=== PATIENT | male | born 1955 | race Caucasian/White ===

== ENCOUNTER 2016-07-25 06:42 | Day surgery (SDC) | payer BC, OTHER ==
[2016-07-25] VITALS (7 sets, daily range): BP systolic 100–118; BP diastolic 68–82; PULSE 59–87; RESP 16–20; TEMP 98.2; O2SAT 97–100
[~2016-07-25] VITALS: Ht 167.6 cm; Wt 65.0 kg
[~2016-07-25 06:42] MED LIST: ALPR.25 PO; AMIO200 PO; DILTCD180 PO; [UNRECOGNIZED DRUG - CODE] PO
[2016-07-25] MEDS ORDERED: ALPR.5 PO (07:12)
[2016-07-25] MEDS ORDERED: DILT180C56 PO (07:12)
[2016-07-25] MEDS ORDERED: DILT120T PO (07:12)
[2016-07-25] MEDS ORDERED: METO25TA3 PO (07:12)
[2016-07-25] MEDS ORDERED: CLAR10CA3 PO (07:12)
[2016-07-25] MEDS ORDERED: ASPI1TAB69 PO (07:12)
[2016-07-25] MEDS ORDERED: AMIO200T PO (07:12)
[2016-07-25] MEDS ORDERED: LEVOFLOXACIN 500 MG PREMIX 100 ML - nephrostomy tube insertion or exchange IV SCH (07:30)
[2016-07-25] MEDS ORDERED: SODIUM CHLORIDE 0.9% 1000 ML IV SCH (07:30)
[2016-07-25] MEDS ORDERED: MIDAZOLAM HCL 5 MG/5 ML VIAL ONE (08:21)
[2016-07-25] MEDS ORDERED: fentaNYL CITRATE 250 MCG/5 ML AMP ONE (08:22)
[2016-07-25] MEDS ORDERED: MIDAZOLAM HCL 2 MG/2 ML VIAL ONE (09:12)
--- NOTE | 2016-07-25 09:40 | PD.RAD ---
Post Procedure Progress Note Pre Procedure Diagnosis: (1) Bladder cancer metastasized to pelvic region Post Procedure Diagnosis: (1) Bladder cancer metastasized to pelvic region Procedure Date: Jul 25, 2016 Supervising Radiologist: Sathish Leahy JR Proceduralist/Assist: Cl Anders, RT(R), Elizabeth Bailey RT(R)(CV) Anesthesia: Conscious Sedation Plan of Activity Patient to Unit: ROPU Patient Condition: Good See PACS Report for procedural detail/treatment Drainage Procedure Procedure 1 Imaging Guidance: Fluoroscopy Side: Bilateral Procedure Type: Nephrostomy, Ureteral Stent Procedure: Exchange Fluid Description: Bloody Findings: Occluded distal left ureter. Unable to get across. New nephrostomy tube placed. Mild hematuria afterwards. Right side has nephroureteral stent. Bladder is extremely small. Spoke to Dr Crooks. Would not do well with ureteral stent due to bladder. Will need to keep nephroureteral. New one placed. Mild hematuria. Plan Can cap the right tube if able to tolerate. If develops fever or right flank pain then will need to place back to a bag. The left tube will need to remain to drainage. Jr. Armond,Sathish Douglas MD Jul 25, 2016 09:40
[2016-07-25] MEDS ORDERED: IOHEXOL 350 MG/ML 50 ML BTL (for RAD DIAG) OTHER ONE (10:32)
--- NOTE | 2016-07-25 13:07 | RADRPT ---
EXAM DATE/TIME: 07/25/2016 08:28 [facility] COMPARISON: No previous studies available for comparison. INDICATIONS : Patient presents with bladder cancer in need of nephrostomy tube exchange. Patient has left-sided ne phrostomy tube last exchanged approximately 3 months ago at an outlying institution. Patient presents for routine exchange. MEDICAL HISTORY : Bladder cancer HTN Urinary distention Hx bladder tumor BPH Bilat renal hydronephrosis SURGICAL HISTORY : Hx of removal of bladder tumor Hernia repair TURP Cystoscopy ENCOUNTER: Subsequent ACUITY: 3 months PAIN SCORE: 0/10 LOCATION: N/A FLUORO TIME: 13.-9 minutes IMAGE SERIES: 5 SEDATION TIME: 60 minutes CONTRAST: 35 cc Omnipaque (iohexol) 350 MEDICATION(S): 1.) 7 mg midazolam (Versed) IV 2.) 350 mcg fentanyl (Sublimaze) IV DEVICE(S): 1.) 8 [place] 25CM Flexima catheter PROCEDURE : 1. Antegrade pyelogram. 2. Nephrostomy tube exchange. 3. Conscious sedation with continuous EKG and oximetry monitoring. The risks, benefits and alternatives to the procedure were explained and verbal and written consent w as obtained. The site was prepped in sterile fashion. Full sterile technique was used, including ca p, mask, sterile gloves and gown and a large sterile sheet. Hand hygiene and 2% chlorhexidine and/or betadine/alcohol prep was utilized per protocol for cutaneous antisepsis. With fluoroscopic guidanc e antegrade pyelogram was performed. These images show appropriate position of the nephrostomy tube within the collecting system of the le ft kidney. Exchange for a 6 [place] sheath and Berenstein catheter was performed. Multiple attempts we re made at gaining access across the occluded ureterovesical junction. These were unsuccessful. Over a guidewire the prescribed nephrostomy tube was placed. Injection of positive contrast demonstra daniel good position of the catheter within the collecting system. Conscious sedation was performed with the prescribed dosages and duration as above in the presence of an independent trained radiology nurse to assist in the monitoring of the patient. EKG and oximetry remained stable throughout the procedure. The patient tolerated the procedure well and there were n o complications. The patient was sent to post anesthesia recovery in stable condition. CONCLUSION: Uncomplicated nephrostomy tube exchange as above. Failed attempts at gaining access across the occlud ed UVJ. Sathish Leahy Jr., MD on July 25, 2016 at 12:53 Board Certified Radiologist. This report was verified electronically.
--- NOTE | 2016-07-25 13:31 | RADRPT ---
EXAM DATE/TIME: 07/25/2016 08:28 [facility] COMPARISON: No previous studies available for comparison. INDICATIONS : Patient presents with bladder cancer in need of nephrostomy tube exchange patient has a right nephro ureteral catheter [facility] Routine exchange. MEDICAL HISTORY : Bladder cancer HTN Urinary distention Hx bladder tumor BPH Bilat renal hydronephrosis SURGICAL HISTORY : Hx of removal of bladder tumor Hernia repair TURP Cystoscopy ENCOUNTER: Subsequent ACUITY: 3 months PAIN SCORE: 0/10 LOCATION: N/A FLUORO TIME: 13.9 minutes IMAGE SERIES: 5 SEDATION TIME: 60 minutes CONTRAST: 35 cc Omnipaque (iohexol) 350 MEDICATION(S): 1.) 7 mg midazolam (Versed) IV 2.) 350 mcg fentanyl (Sublimaze) IV DEVICE(S): 1.) 8 [place]ese 24CM Flexima catheter PROCEDURE : 1. Percutaneous antegrade pyelogram 2. Exchange of nephroureteral stent 3. Conscious sedation with continuous EKG and oximetry monitoring The risks, benefits and alternatives to the procedure were explained and verbal and written consent w as obtained. The site was prepped in sterile fashion. Full sterile technique was used, including ca p, mask, sterile gloves and gown and a large sterile sheet. Hand hygiene and 2% chlorhexidine and/or betadine/alcohol prep was utilized per protocol for cutaneous antisepsis. The skin and subcutaneous tissues were infiltrated with local anesthetic solution. Percutaneous antegrade pyelogram was performed to delineate the urinary tract. The patient has an exi sting nephroureteral catheter. The urinary bladder is extremely small in caliber. I discussed this wi th Dr. Crooks. We both have considerable concern for the ability to exchange the ureteral stent via a cystoscopic approach. Continued nephroureteral catheter is felt most prudent. Existing nephrouretera l catheter was exchanged without difficulty. Mild hematuria noted following this. Follow-up pyelogram demonstrates good position. Conscious sedation was performed with the prescribed dosages and duration as above in the presence of an independent trained radiology nurse to assist in the monitoring of the patient. EKG and oximetry remained stable throughout the procedure. The patient tolerated the procedure well and there were no complications. CONCLUSION: Exchange of a nephroureteral catheter as detailed above. This patient has an extremely small caliber urinary bladder due to prior therapy and there is concern for the ability to exchange a ureteral sten t via a cystoscopic approach. After discussion with Dr. Crooks it was felt that a nephroureteral cath eter be maintained. Sathish Leahy Jr., MD on July 25, 2016 at 13:06 Board Certified Radiologist. This report was verified electronically.
== END 2016-07-25 12:15 | disposition home or self-care (01) ==
LOC: HROP 06:42 → HRIP 06:44 → HROP 12:15
DX: C67.9 Malignant neoplasm of bladder, unspecified (principal); I10 Essential (primary) hypertension; N40.0 Benign prostatic hyperplasia without lower urinary tract symptoms; N13.30 Unspecified hydronephrosis; Z88.1 Allergy status to other antibiotic agents; Z88.8 Allergy status to other drugs, medicaments and biological substances
CPT/HCPCS: 50387; 50431; 50435; 99152; 99153; C1729; C1769; C1877; C1887; J1956; J2250; J3010; J7030; Q9967

== ENCOUNTER 2016-10-01 10:50 | Inpatient (IN) | payer BC, OTHER ==
[~2016-10-01] VITALS: Ht 167.6 cm; Wt 72.2 kg
[2016-10-01 06:09] VITALS: PULSE 83
[~2016-10-01 10:50] MED LIST changes: -ALPR.25 PO; +ALPR.5 PO; -AMIO200 PO; +AMIO200T PO; +ASPI1TAB69 PO; +CLAR10CA3 PO; +DILT120T PO; +DILT180C56 PO; -DILTCD180 PO; +METO25TA3 PO; -[UNRECOGNIZED DRUG - CODE] PO
[2016-10-01 10:52] VITALS: BP 89/54; PULSE 76; RESP 20; TEMP 98.5; O2SAT 97
--- NOTE | 2016-10-01 11:35 | PD ---
HPI Chief Complaint: [employer] Problem Time Seen by Provider: 11:12 Travel History International Travel<30 days: No Contact w/Intl Traveler<30days: No Traveled to known affect area: No History of Present Illness HPI 60yo M with PMH of bladder cancer with local mets (finished 10 days of radiation at [facility] 2 days ago) presents to the ED with c/o no output from his left nephrostomy tube. States that the left tube is further out than normal. Pt had fever 2 days ago. +Nausea for 3 days. Denies any chest pain, sob, abdominal pain, focal weakness or numbness. Pt had bilateral nephrostomy tube replaced [address] Leahy in IR as outpatient. Pt follows with oncologist Dr. Cunningham and urologist Dr. Crooks. PFSH Past Medical History Hx Anticoagulant Therapy: Yes (ASA 81MG) Anxiety: Yes Depression: No Cancer: Yes (bladder cancer) Cardiovascular Problems: Yes (AFIB) Diabetes: No Diminished Hearing: Yes Endocrine: No Genitourinary: Yes Hepatitis: No Hiatal Hernia: No Immune Disorder: No Musculoskeletal: No Neurologic: No Psychiatric: No Reproductive: No Respiratory: No Thyroid Disease: No Past Surgical History Abdominal Surgery: Yes AICD: No Cardiac Surgery: No Ear Surgery: No Endocrine Surgery: No Eye Surgery: No Genitourinary Surgery: Yes (biopsy of bladder and prostate(,) diverticulectomy,) Gynecologic Surgery: No Joint Replacement: No Oral Surgery: No Pacemaker: No Thoracic Surgery: No Social History Alcohol Use: No Tobacco Use: No Substance Use: No Allergies-Medications (Allergen,Severity, Reaction): Coded Allergies: Cipro (Verified Allergy, Intermediate, 10/01/16) pt states "it doesnt agree with me" Lactose (Verified Allergy, Unknown, 10/01/16) Reported Meds & Prescriptions Reported Meds & Active Scripts Active Reported Claritin (Loratadine) 10 Mg Cap 10 Mg PO DAILY Xanax (Alprazolam) 0.5 Mg Tab 0.5 Mg PO Q8H PRN Aspirin 81 Mg Tabdr 81 Mg PO DAILY Metoprolol Tartrate 25 Mg Tab 25 Mg PO BID Diltiazem (Diltiazem HCl) 120 Mg Tab 120 Mg PO HS Diltiazem CD 24 HR 180 Mg Caper 180 Mg PO DAILY Amiodarone (Amiodarone HCl) 200 Mg Tab 200 Mg PO DAILY Review of Systems Except as stated in HPI: all other systems reviewed are Neg Physical Exam Narrative GENERAL: 60yo M not in distress. SKIN: Focused skin assessment warm/dry. HEAD: Atraumatic. Normocephalic. EYES: Pupils equal and round. No scleral icterus. No injection or drainage. ENT: No nasal bleeding or discharge. Mucous membranes pink and moist. NECK: Trachea midline. No JVD. CARDIOVASCULAR: Regular rate and rhythm. No murmur appreciated. RESPIRATORY: No accessory muscle use. Clear to auscultation. Breath sounds equal bilaterally. GASTROINTESTINAL: Abdomen soft, non-tender, nondistended. BACK: Bilateral nephrostomy tubes, left is pulled out more and not draining. Right is draining clear yellow urine. MUSCULOSKELETAL: No obvious deformities. No clubbing. No cyanosis. No edema. NEUROLOGICAL: Awake and alert. No obvious cranial nerve deficits. Motor grossly within normal limits. Normal speech. PSYCHIATRIC: Appropriate mood and affect; insight and judgment normal. Data Data Last Documented VS Vital Signs Date Time Temp Pulse Resp B/P Pulse Ox O2 Delivery O2 Flow Rate FiO2 10/01/16 13:30 103/59 10/01/16 10:52 98.5 76 20 97 Room Air Orders Complete Blood Count With Diff (10/01/16 11:27) Basic Metabolic Panel (Bmp) (10/01/16 11:27) Ct Abd/Pel W/O Iv Contrast (10/01/16 ) Urinalysis - C+S If Indicated (10/01/16 11:27) Sodium Chlor 0.9% 1000 Ml Inj (Ns 1000 M (10/01/16 11:45) Urine Culture (10/01/16 12:20) Invasive Rad Dept Consult (10/01/16 ) Ceftriaxone Inj (Rocephin Inj) (10/01/16 13:30) Sodium Chlor 0.9% 1000 Ml Inj (Ns 1000 M (10/01/16 13:30) Admit Order (Ed Use Only) (10/01/16 13:36) Labs Laboratory Tests Test 10/01/16 10/01/16 12:00 12:20 White Blood Count 10.9 TH/MM3 Red Blood Count 3.66 MIL/MM3 Hemoglobin 9.3 GM/DL Hematocrit 28.0 % Mean Corpuscular Volume 76.5 FL Mean Corpuscular Hemoglobin 25.4 PG Mean Corpuscular Hemoglobin 33.2 % Concent Red Cell Distribution Width 18.9 % Platelet Count 259 TH/MM3 Mean Platelet Volume 8.3 FL Neutrophils (%) (Auto) 82.1 % Lymphocytes (%) (Auto) 2.9 % Monocytes (%) (Auto) 14.3 % Eosinophils (%) (Auto) 0.2 % Basophils (%) (Auto) 0.5 % Neutrophils # (Auto) 8.9 TH/MM3 Lymphocytes # (Auto) 0.3 TH/MM3 Monocytes # (Auto) 1.5 TH/MM3 Eosinophils # (Auto) 0.0 TH/MM3 Basophils # (Auto) 0.1 TH/MM3 CBC Comment DIFF FINAL Differential Comment Sodium Level 133 MEQ/L Potassium Level 3.9 MEQ/L Chloride Level 101 MEQ/L Carbon Dioxide Level 21.4 MEQ/L Anion Gap 11 MEQ/L Blood Urea Nitrogen 61 MG/DL Creatinine 4.61 MG/DL Estimat Glomerular Filtration 13 ML/MIN Rate Random Glucose 98 MG/DL Calcium Level 8.7 MG/DL Urine Color YELLOW Urine Turbidity HAZY Urine pH 5.5 Urine Specific [place] 1.013 Urine Protein 100 mg/dL Urine Glucose (UA) NEG mg/dL Urine Ketones NEG mg/dL Urine Occult Blood LARGE Urine Nitrite NEG Urine Bilirubin NEG Urine Urobilinogen LESS THAN 2.0 MG/DL Urine Leukocyte Esterase LARGE Urine RBC 83 /hpf Urine WBC 66 /hpf Urine Squamous Epithelial <1 /hpf Cells Urine Amorphous Sediment RARE Urine Bacteria RARE /hpf Urine Mucus FEW /lpf Microscopic Urinalysis Comment CULTURE INDICATED MDM Medical Decision Making Medical Screen Exam Complete: Yes Emergency Medical Condition: Yes Interpretation(s) Laboratory Tests Test 10/01/16 10/01/16 12:00 12:20 White Blood Count 10.9 TH/MM3 (4.0-11.0) Red Blood Count 3.66 MIL/MM3 (4.50-5.90) Hemoglobin 9.3 GM/DL (13.0-17.0) Hematocrit 28.0 % (39.0-51.0) Mean Corpuscular Volume 76.5 FL (80.0-100.0) Mean Corpuscular Hemoglobin 25.4 PG (27.0-34.0) Mean Corpuscular Hemoglobin 33.2 % Concent (32.0-36.0) Red Cell Distribution Width 18.9 % (11.6-17.2) Platelet Count 259 TH/MM3 (150-450) Mean Platelet Volume 8.3 FL (7.0-11.0) Neutrophils (%) (Auto) 82.1 % (16.0-70.0) Lymphocytes (%) (Auto) 2.9 % (9.0-44.0) Monocytes (%) (Auto) 14.3 % (0.0-8.0) Eosinophils (%) (Auto) 0.2 % (0.0-4.0) Basophils (%) (Auto) 0.5 % (0.0-2.0) Neutrophils # (Auto) 8.9 TH/MM3 (1.8-7.7) Lymphocytes # (Auto) 0.3 TH/MM3 (1.0-4.8) Monocytes # (Auto) 1.5 TH/MM3 (0-0.9) Eosinophils # (Auto) 0.0 TH/MM3 (0-0.4) Basophils # (Auto) 0.1 TH/MM3 (0-0.2) CBC Comment DIFF FINAL Differential Comment Sodium Level 133 MEQ/L (136-145) Potassium Level 3.9 MEQ/L (3.5-5.1) Chloride Level 101 MEQ/L (98-107) Carbon Dioxide Level 21.4 MEQ/L (21.0-32.0) Anion Gap 11 MEQ/L (5-15) Blood Urea Nitrogen 61 MG/DL (7-18) Creatinine 4.61 MG/DL (0.60-1.30) Estimat Glomerular Filtration 13 ML/MIN (>89) Rate Random Glucose 98 MG/DL (74-106) Calcium Level 8.7 MG/DL (8.5-10.1) Urine Color YELLOW (YELLW/STRAW) Urine Turbidity HAZY (CLEAR) Urine pH 5.5 (5.0-8.5) Urine Specific [place] 1.013 (1.002-1.035) Urine Protein 100 mg/dL (NEG-TRACE) Urine Glucose (UA) NEG mg/dL (NEG) Urine Ketones NEG mg/dL (NEG) Urine Occult Blood LARGE (NEG) Urine Nitrite NEG (NEG) Urine Bilirubin NEG (NEG) Urine Urobilinogen LESS THAN 2.0 MG/DL (LESS THAN 2.0) Urine Leukocyte Esterase LARGE (NEG) Urine RBC 83 /hpf (0-3) Urine WBC 66 /hpf (0-5) Urine Squamous Epithelial <1 /hpf (0-5) Cells Urine Amorphous Sediment RARE Urine Bacteria RARE /hpf (NONE) Urine Mucus FEW /lpf (OCC) Microscopic Urinalysis Comment CULTURE INDICATED Last Impressions Abdomen/Pelvis CT 10/01/16 0000 Signed Impressions: Service Date/Time: Saturday, October 01, 2016 12:05 - CONCLUSION: 1. Bilateral hydronephrosis and hydroureter identified. 2. The bladder is incompletely evaluated on this study without contrast, but abnormal in appearance with surgical clips and abnormal soft tissue masslike area in the left hemipelvis. 3. Diverticulosis without diverticulitis. 4. Left para-aortic adenopathy measuring up to 1.7 cm in short axis dimension at the level of the kidney. Austen Golden MD Differential Diagnosis Incomplete dislodgment of left nephrostomy tube vs. ADAM vs. hydronephrosis Narrative Course 60yo M with bladder CA here with c/o no output from left nephrostomy tube for 36 hours. Labs reviewed, no leukocytosis. H/H is 9.3/28.0. Pt has lab work from 08/30/16 with H/H of 10.9/33.3. Denies any blood or black stool. BUN/ creatinine elevated at 61/4.61 which is increased from 34/2.0 on 08/30/16. UA showed positive leukocyte, WBC 66. Pt given NS IVF x2 and ceftriaxone 1gm IV. CTa/p showed bilateral hydronephrosis and hydroureter. Discussed with Dr. Bower who is urologist covering Dr. Crooks and he recommends placing a consult for IR to have nephrostomy tubes changed. Agrees with admission. Discussed with hospitalist Dr. Daigle who accepted the patient to his service for acute renal failure secondary to bilateral obstructive uropathy and urine infection. Critical Care Narrative Aggregate critical care time was 40 minutes. Time to perform other separately billable procedures was not included in the critical care time. My time did not include minutes spent treating any other patients simultaneously or on activities that did not directly contribute to the patient's treatment. The services I provided to this patient were to treat and/or prevent clinically significant deterioration that could result in: cardiovascular collapse or . I provided critical care services requiring my management, as noted below: Chart data review, documentation time, medication orders and management, vital sign assessments/reviewing monitor data, ordering and reviewing lab tests, ordering and interpreting/reviewing x-rays and diagnostic studies, care of the patient and discussion of the patient with the admitting physicians. Diagnosis Primary Impression: Acute bilateral obstructive uropathy Additional Impression: Acute renal failure Qualified Code: N17.9 - Acute renal failure, unspecified acute renal failure type Admitting Information Admitting Physician Requests: Freya Bean DO October 01, 2016 11:35
[2016-10-01] MEDS ORDERED: SODIUM CHLOR 0.9% 1000 ML INJ 1,000 ML IV ONE ×2 (11:45→13:30)
[2016-10-01 12:21] LABS: AUTOMATED NEUTROPHIL # 8.9 TH/MM3 (1.8-7.7); BASOPHIL # 0.1 TH/MM3 (0-0.2); BASOPHIL % 0.5 % (0.0-2.0); EOSINOPHIL % 0.2 % (0.0-4.0); HEMO FLAGS DIFF FINAL; LYMPH % 2.9 % (9.0-44.0); LYMPHOCYTE # 0.3 TH/MM3 (1.0-4.8); MEAN CELL VOLUME 76.5 FL (80.0-100.0); MEAN CORPUSCULAR HEMOGLOBIN 25.4 PG (27.0-34.0); MEAN CORPUSCULAR HGB CONC 33.2 % (32.0-36.0); MONO % 14.3 % (0.0-8.0); NEUT % 82.1 % (16.0-70.0); PLATELET COUNT 259 TH/MM3 (150-450); RED BLOOD COUNT 3.66 MIL/MM3 (4.50-5.90); RED CELL DISTRIBUTION WIDTH 18.9 % (11.6-17.2); WHITE BLOOD COUNT 10.9 TH/MM3 (4.0-11.0)
--- NOTE | 2016-10-01 12:23 | RADRPT ---
EXAM DATE/TIME: 10/01/2016 12:05 [facility] COMPARISON: No previous studies available for comparison. INDICATIONS : Left flank pain. ORAL CONTRAST: No oral contrast ingested. RADIATION DOSE: 6.65 CTDIvol (mGy) MEDICAL HISTORY : Carcinoma, bladder. SURGICAL HISTORY : nephrostomy tube. ENCOUNTER: Initial ACUITY: 1 day PAIN SCALE: 3/10 LOCATION: Bilateral flank TECHNIQUE: Volumetric scanning of the abdomen and pelvis was performed. Using automated exposure control and ad justment of the mA and/or kV according to patient size, radiation dose was kept as low as reasonably achievable to obtain optimal diagnostic quality images. FINDINGS: There are bilateral percutaneous nephrostomy tubes identified with moderate bilateral hydronephrosis right greater than left. There is hydroureter present. A right nephroureteral stent is noted with dis nasim coil in the bladder. There are surgical clips and abnormal soft tissue in the left hemipelvis jose martin ntified suspect for a masslike area measuring 3.7 x 3.6 cm in transverse and AP dimension. This abuts the left lateral aspect of the bladder. There is diverticulosis of the sigmoid and descending colons . There is no evidence of bowel obstruction. Lung bases are clear. Osseous structures are intact. CONCLUSION: 1. Bilateral hydronephrosis and hydroureter identified. 2. The bladder is incompletely evaluated on this study without contrast, but abnormal in appearance w ith surgical clips and abnormal soft tissue masslike area in the left hemipelvis. 3. Diverticulosis without diverticulitis. 4. Left para-aortic adenopathy measuring up to 1.7 cm in short axis dimension at the level of the kid scottie. Austen Golden MD on October 01, 2016 at 12:18 Board Certified Radiologist. This report was verified electronically.
[2016-10-01 12:56] LABS: BACTERIA, URINE RARE /hpf; BLOOD, URINE LARGE (NEG); GLUCOSE,URINE NEG (NEG); KETONE, URINE NEG (NEG); MUCUS URINE FEW /lpf (OCC); NITRITE,URINE NEG (NEG); PH, URINE 5.5 (5.0-8.5); SQUAMOUS EPITHELIAL CELL URINE <1 /hpf (0-5); URINE COLOR YELLOW (YELLW/STRAW)
[2016-10-01 12:57] LABS: COMMENT (UR) CULTURE INDICATED; CULTURE IF INDICATED CULTURE INDICATED
[2016-10-01 13:03] LABS: BICARBONATE 21.4 MEQ/L (21.0-32.0); POTASSIUM 3.9 MEQ/L (3.5-5.1)
[2016-10-01 13:30] VITALS: BP 103/59
[2016-10-01] MEDS ORDERED: cefTRIAXone INJ 1,000 MG in SODIUM CHLORIDE 0.9% INJ 100 ML IV ONE (13:30)
--- NOTE | 2016-10-01 14:20 | HHI.HP ---
[facility] Service [facility] Primary Care Physician Yong Cunningham MD Admission Diagnosis ADAM, obstructive uropathy Diagnoses: (1) Acute bilateral obstructive uropathy Diagnosis: Principal (2) Bladder cancer metastasized to pelvic region Diagnosis: Principal (3) Acute kidney injury Diagnosis: Principal Chief Complaint: ' there's no output from my left nephrostomy tube'. Travel History International Travel<30 Days: No Contact w/Intl Traveler <30 Da: No Traveled to Known Affected Are: No History of Present Illness patient is a 60 y/o male with history of bladder cancer- s/p bilateral nephrostomy tube placement- s/p recent radiation presented to ER stating that there's no urine output from the left nephrostomy tube. he says that he had some fever at home a couple of days ago. he was just came back home from [facility] after his last radiation on Sunday. he's being followed up by and .he says that the last time that his nephrostomy was changed was three months ago and the next scheduled nephrostomy tube exchange is in October. Review of Systems Constitutional: COMPLAINS OF: Fever, DENIES: Weight loss, Chills, Night Sweats Eyes: DENIES: Blurred vision, Diplopia, Vision loss, Double Vision Ears, nose, mouth, throat: DENIES: Tinnitus, Vertigo, Throat pain, Epistaxis Respiratory: DENIES: Apneas, Cough, Snoring, Wheezing, Hemoptysis, Sputum production, Shortness of breath Cardiovascular: DENIES: Chest pain, Palpitations, Syncope, Dyspnea on Exertion , PND, Lower Extremity Edema, Orthopnea, Claudication Gastrointestinal: DENIES: Abdominal pain, Black stools, Bloody stools, Constipation, Diarrhea, Nausea, Vomiting, Difficulty Swallowing, Anorexia Genitourinary: DENIES: Urinary frequency, Urgency, Hematuria, Dysuria Musculoskeletal: DENIES: Joint pain, Muscle aches, Stiffness, Joint Swelling Integumentary: DENIES: Rash Neurologic: DENIES: Abnormal gait, Headache, Localized weakness, Paresthesias, Seizures, Speech Problems, Tremor, Poor Balance Psychiatric: DENIES: Anxiety, Confusion, Mood changes, Depression, Hallucinations, Agitation, Suicidal Ideation, Homicidal Ideation, Delusions Past Family Social History Past Medical History bladder cancer atrial fibrillation Past Surgical History nephrostomy tube placement Reported Medications Claritin (Loratadine) 10 Mg Cap 10 Mg PO DAILY Xanax (Alprazolam) 0.5 Mg Tab 0.5 Mg PO Q8H PRN Aspirin 81 Mg Tabdr 81 Mg PO DAILY Metoprolol Tartrate 25 Mg Tab 25 Mg PO BID Diltiazem (Diltiazem HCl) 120 Mg Tab 120 Mg PO HS Diltiazem CD 24 HR 180 Mg Caper 180 Mg PO DAILY Amiodarone (Amiodarone HCl) 200 Mg Tab 200 Mg PO DAILY Allergies: Coded Allergies: Cipro (Verified Allergy, Intermediate, 10/01/16) pt states "it doesnt agree with me" Lactose (Verified Allergy, Unknown, 10/01/16) Active Ordered Medications Current Medications Sodium Chloride 1,000 ml @ 999 mls/hr BOLUS ONCE IV Last administered on 10/01 12:14; Start 10/01/16 at 11:45; Stop 10/01/16 at 12:45; Status DC Ceftriaxone Sodium 1000 mg/ Sodium Chloride 100 ml @ 200 mls/hr ONCE ONCE IV Last administered on 10/01/16 13:37; Start 10/01/16 at 13:30; Stop 10/01/16 at 13:59 Sodium Chloride (NS 1000 ml Inj) 1,000 ml @ 999 mls/hr BOLUS ONCE IV Last administered on 10/01/16 13:36; Start 10/01/16 at 13:30; Stop 10/01/16 at 14:30 Family History not relevant to this presentation. Social History no smoking or drinking. Physical Exam Vital Signs Vital Signs Date Time Temp Pulse Resp B/P Pulse Ox O2 Delivery O2 Flow Rate FiO2 10/01/16 10:52 98.5 76 20 89/54 97 Room Air Physical Exam GENERAL: This is a well-nourished, well-developed patient, in no apparent distress. SKIN: No rashes, ecchymoses or lesions. Cool and dry. HEAD: Atraumatic. Normocephalic. No temporal or scalp tenderness. EYES: Pupils equal round and reactive. Extraocular motions intact. No scleral icterus. No injection or drainage. ENT: Nose without bleeding, purulent drainage or septal hematoma. Throat without erythema, tonsillar hypertrophy or exudate. Uvula midline. Airway patent. NECK: Trachea midline. No JVD or lymphadenopathy. Supple, nontender, no meningeal signs. CARDIOVASCULAR: Regular rate and rhythm without murmurs, gallops, or rubs. RESPIRATORY: Clear to auscultation. Breath sounds equal bilaterally. No wheezes , rales, or rhonchi. GASTROINTESTINAL: Abdomen soft, non-tender, nondistended. No hepato-splenomegaly , or palpable masses. No guarding. MUSCULOSKELETAL: Extremities without clubbing, cyanosis, or edema. No joint tenderness, effusion, or edema noted. No calf tenderness. Negative Homans sign bilaterally. NEUROLOGICAL: Awake and alert. Cranial nerves II through XII intact. Motor and sensory grossly within normal limits. Five out of 5 muscle strength in all muscle groups. Normal speech. Laboratory Laboratory Tests Test 10/01/16 10/01/16 12:00 12:20 White Blood Count 10.9 Red Blood Count 3.66 Hemoglobin 9.3 Hematocrit 28.0 Mean Corpuscular Volume 76.5 Mean Corpuscular Hemoglobin 25.4 Mean Corpuscular Hemoglobin 33.2 Concent Red Cell Distribution Width 18.9 Platelet Count 259 Mean Platelet Volume 8.3 Neutrophils (%) (Auto) 82.1 Lymphocytes (%) (Auto) 2.9 Monocytes (%) (Auto) 14.3 Eosinophils (%) (Auto) 0.2 Basophils (%) (Auto) 0.5 Neutrophils # (Auto) 8.9 Lymphocytes # (Auto) 0.3 Monocytes # (Auto) 1.5 Eosinophils # (Auto) 0.0 Basophils # (Auto) 0.1 CBC Comment DIFF FINAL Differential Comment Sodium Level 133 Potassium Level 3.9 Chloride Level 101 Carbon Dioxide Level 21.4 Anion Gap 11 Blood Urea Nitrogen 61 Creatinine 4.61 Estimat Glomerular Filtration 13 Rate Random Glucose 98 Calcium Level 8.7 Urine Color YELLOW Urine Turbidity HAZY Urine pH 5.5 Urine Specific [place] 1.013 Urine Protein 100 Urine Glucose (UA) NEG Urine Ketones NEG Urine Occult Blood LARGE Urine Nitrite NEG Urine Bilirubin NEG Urine Urobilinogen LESS THAN 2.0 Urine Leukocyte Esterase LARGE Urine RBC 83 Urine WBC 66 Urine Squamous Epithelial <1 Cells Urine Amorphous Sediment RARE Urine Bacteria RARE Urine Mucus FEW Microscopic Urinalysis Comment CULTURE INDICATED Date/Time Procedure Status Source Growth 10/01/16 12:20 Urine Culture Received Urine Clean Catch Pending Result Diagram: 10/01/16 1200 10/01/16 1200 Imaging Last Impressions Abdomen/Pelvis CT 10/01/16 0000 Signed Impressions: Service Date/Time: Saturday, October 01, 2016 12:05 - CONCLUSION: 1. Bilateral hydronephrosis and hydroureter identified. 2. The bladder is incompletely evaluated on this study without contrast, but abnormal in appearance with surgical clips and abnormal soft tissue masslike area in the left hemipelvis. 3. Diverticulosis without diverticulitis. 4. Left para-aortic adenopathy measuring up to 1.7 cm in short axis dimension at the level of the kidney. Austen Golden MD Assessment and Plan Assessment and Plan A/P - bladder cancer - s/p nephrostomy tube placement- now with bilateral hydronephrosis/ hydroureter IR consulted for nephrostomy tube exchange- will consult urology continue with IV antibiotic for now-pending the UC -acute kidney injury superimposed on chronic renal insufficiency- due to obstructive uropathy continue with IV fluid- monitor urine output and renal function -transient hypotension; improved after IV fluid -atrial fibrillation; resume metoprolol with hold parameters in light of low blood pressure at the time of presentation- hold cardizem for now -anemia- likely due to chronic disease- will monitor -DVT prophylaxis with SCD's Discussed Condition With ER physician , the patient and RN. Physician Certification 2 Midnight Certification Type: Admission for Inpatient Services Order for Inpatient Services The services are ordered in accordance with Medicare regulations or non- Medicare payer requirements, as applicable. In the case of services not specified as inpatient-only, they are appropriately provided as inpatient services in accordance with the 2-midnight benchmark. Estimated LOS (days): 2 days is the estimated time the patient will need to remain in the hospital, assuming treatment plan goals are met and no additional complications. Post-Hospital Plan: Home Lane Daigle MD October 01, 2016 14:20
[2016-10-01] MEDS: SODIUM CHLOR 0.9% 1000 ML INJ 1,000 ML IV SCH ×2 (14:30→20:30)
[2016-10-01 16:04] VITALS: BP 105/55; PULSE 72; RESP 18; O2SAT 98
[2016-10-01 18:40] VITALS: BP 106/73; PULSE 87; RESP 20; TEMP 98.9; O2SAT 96
[2016-10-01] MEDS ORDERED: ONDANSETRON HCL 4 MG/2 ML VIAL IV PUSH PRN (18:45)
[2016-10-01] MEDS ORDERED: DILTIAZEM-CD 120 MG CAP ER PO SCH (21:00)
[2016-10-01 21:20] VITALS: BP 107/57; PULSE 92; RESP 22; TEMP 99.4; O2SAT 95
[2016-10-01] MEDS: METOPROLOL TARTRATE 25 MG TAB PO SCH (21:23)
[2016-10-01] MEDS: ALPRAZolam 0.5 MG TAB PO PRN (23:07)
[2016-10-02 00:53] VITALS: BP 92/58; PULSE 79; RESP 20; TEMP 99.3; O2SAT 94
[2016-10-02 05:02] VITALS: BP 100/59; PULSE 94; RESP 20; TEMP 99.6; O2SAT 94
[2016-10-02] MEDS: ALPRAZolam 0.5 MG TAB PO PRN (07:04)
--- NOTE | 2016-10-02 07:55 | HHI.PR ---
Subjective Remarks resting comfortably with no distress. denies pain. no fever. wants to go home today. d/w the RN. Objective Vitals Vital Signs Date Time Temp Pulse Resp B/P Pulse Ox O2 Delivery O2 Flow Rate FiO2 10/02/16 05:02 99.6 94 20 100/59 94 10/02/16 00:53 99.3 79 20 92/58 94 10/01/16 21:20 99.4 92 22 107/57 95 10/01/16 18:40 98.9 87 20 106/73 96 10/01/16 16:04 72 18 105/55 98 10/01/16 13:30 103/59 10/01/16 10:52 98.5 76 20 89/54 97 Room Air I/O 10/01/16 10/01/16 10/01/16 10/02/16 10/02/16 10/02/16 07:00 15:00 23:00 07:00 15:00 23:00 Output Total 250 ml 703 ml Balance -250 ml -703 ml Output Urine Total 1 ml Drainage Total 250 ml 702 ml Result Diagram: 10/01/16 1200 10/01/16 1200 Imaging Last Impressions Abdomen/Pelvis CT 10/01/16 0000 Signed Impressions: Service Date/Time: Saturday, October 01, 2016 12:05 - CONCLUSION: 1. Bilateral hydronephrosis and hydroureter identified. 2. The bladder is incompletely evaluated on this study without contrast, but abnormal in appearance with surgical clips and abnormal soft tissue masslike area in the left hemipelvis. 3. Diverticulosis without diverticulitis. 4. Left para-aortic adenopathy measuring up to 1.7 cm in short axis dimension at the level of the kidney. Austen Golden MD Objective Remarks GENERAL: This is a well-nourished, well-developed patient, in no apparent distress. CARDIOVASCULAR: Regular rate and regular rhythm without murmurs, gallops, or rubs. RESPIRATORY: Clear to auscultation. Breath sounds equal bilaterally. No wheezes , rales, or rhonchi. GASTROINTESTINAL: Abdomen soft, non-tender, nondistended. Normal, active bowel sounds MUSCULOSKELETAL: Extremities without clubbing, cyanosis, or edema. NEURO: Alert & Oriented x4 to person, place, time, situation. Moves all ext x4 Medications and IVs Current Medications Sodium Chloride 1,000 ml @ 999 mls/hr BOLUS ONCE IV Last administered on 10/01 12:14; Start 10/01/16 at 11:45; Stop 10/01/16 at 12:45; Status DC Ceftriaxone Sodium 1000 mg/ Sodium Chloride 100 ml @ 200 mls/hr ONCE ONCE IV Last administered on 10/01/16 13:37; Start 10/01/16 at 13:30; Stop 10/01/16 at 13:59; Status DC Sodium Chloride 1,000 ml @ 999 mls/hr BOLUS ONCE IV Last administered on 10/01 13:36; Start 10/01/16 at 13:30; Stop 10/01/16 at 14:30; Status DC Ceftriaxone Sodium 1000 mg/ Sodium Chloride 100 ml @ 200 mls/hr Q24H IV ; Start 10/02/16 at 13:00 Sodium Chloride (NS 1000 ml Inj) 1,000 ml @ 75 mls/hr [id number] IV Last administered on 10/01/16 20:30; Start 10/01/16 at 14:30 Alprazolam (Xanax) 0.5 mg Q8H PRN PO ANXIETY Last administered on 10/02/16 07: 04; Start 10/01/16 at 14:00 Amiodarone HCl (Cordarone) 200 mg DAILY PO ; Start 10/02/16 at 09:00 Aspirin (Ecotrin Ec) 81 mg DAILY PO ; Start 10/02/16 at 09:00 Loratadine (Claritin) 10 mg DAILY PO ; Start 10/02/16 at 09:00 Metoprolol Tartrate (Lopressor) 25 mg BID PO Last administered on 10/01/16 21: 23; Start 10/01/16 at 21:00 Diltiazem HCl (Cardizem Cd) 180 mg DAILY PO ; Start 10/02/16 at 09:00 Diltiazem HCl (Cardizem Cd) 120 mg HS PO Last administered on 10/01/16 21:23; Start 10/01/16 at 21:00 Ondansetron HCl (Zofran Inj) 4 mg Q8H PRN IV PUSH NAUSEA Last administered on 21:23; Start 10/01/16 at 18:45 A/P Assessment and Plan A/P - bladder cancer - s/p nephrostomy tube placement- now with bilateral hydronephrosis/ hydroureter IR consulted for nephrostomy tube exchange- consulted urology continue with antibiotic for now-pending the UC -acute kidney injury superimposed on chronic renal insufficiency- due to obstructive uropathy continue with IV fluid- monitor urine output and renal function -transient hypotension; improved after IV fluid -atrial fibrillation; resumed home meds. -anemia- likely due to chronic disease- -DVT prophylaxis with SCD's Discharge Planning possible dc home later today after IR evaluation for nephrostomy tube exchange and if renal function has improved. f/u with pcp, oncology and urology. see med list. d/w the patient, RN. Lane Daigle MD October 02, 2016 07:55
[2016-10-02] MEDS ORDERED: LEVA250T PO (07:59)
[2016-10-02 08:30] VITALS: BP 105/63; PULSE 88; RESP 18; TEMP 99.3; O2SAT 97
[2016-10-02 08:59] LABS: BICARBONATE 21.3 MEQ/L (21.0-32.0); POTASSIUM 3.7 MEQ/L (3.5-5.1)
[2016-10-02] MEDS ORDERED: ASPIRIN EC 81 MG TABEC PO SCH (09:00)
[2016-10-02] MEDS ORDERED: AMIODARONE 200 MG TAB PO SCH (09:00)
[2016-10-02] MEDS ORDERED: LORATADINE 10 MG TAB PO SCH (09:00)
[2016-10-02] MEDS ORDERED: DILTIAZEM-CD 180 MG CAP ER PO SCH (09:00)
[2016-10-02] MEDS: METOPROLOL TARTRATE 25 MG TAB PO SCH (09:16)
--- NOTE | 2016-10-02 09:31 | HHI.PR ---
Addendum To [facility] Progress Not Reason for addendum: Additonal documentation (repeated BMP resulted; d/w who recommended that the patient be discharged after nephrostomy tube exchange with f/u as outpatient.) Lane Daigle MD October 02, 2016 09:31
[2016-10-02] MEDS ORDERED: fentaNYL CITRATE 250 MCG/5 ML AMP ONE (10:21)
--- NOTE | 2016-10-02 11:19 | PD.RAD ---
Post Procedure Progress Note Pre Procedure Diagnosis: (1) Acute bilateral obstructive uropathy (2) Bladder cancer metastasized to pelvic region Post Procedure Diagnosis: (1) Acute bilateral obstructive uropathy (2) Bladder cancer metastasized to pelvic region Procedure Date: October 02, 2016 Supervising Radiologist: Prieto Perez Proceduralist/Assist: Cl Anders, RT(R), Dereck Collazo RT(R)() Anesthesia: Local, Analgesia Plan of Activity Patient to Unit: Nursing Unit Patient Condition: Good See PACS Report for procedural detail/treatment Drainage Procedure Procedure 1 Imaging Guidance: Fluoroscopy Procedure Type: Nephrostomy (x2), Ureteral Stent (right) Procedure: Exchange Drainage: [place] drainage Fluid Description: Yellow Findings: Left PCN and Right PCNU changed over a wire. Fentanyl only per pt request Prieto Perez MD October 02, 2016 11:19
[2016-10-02] MEDS ORDERED: IOHEXOL 350 MG/ML 50 ML BTL (for RAD DIAG) ONE (11:40)
--- NOTE | 2016-10-02 12:22 | PD.CONS ---
[facility] Service Urology Consult Requested By Primary Care Physician Yong Cunningham MD Diagnosis: (1) Acute bilateral obstructive uropathy ICD Code: N13.9 (2) Bladder cancer metastasized to pelvic region ICD Code: C67.9 (3) Acute kidney injury ICD Code: N17.9 History of Present Illness 60 y.o. male with h/o bladder cancer diagnosed in 04/25. Pt with h/o bilateral nephrostomy tubes in place with the left side not draining well. CT scan showed bilateral hydronephrosis with a right nephroureteral stent in place. Patient was scheduled to have his nephrostomy tubes changed in October. He is followed both by Dr. Cunningham and Dr. Crooks for his bladder cancer. He recently completed his course of radiation therapy over at [facility] on Sunday. He does note some hematuria. Low-grade temp was noted. Patient underwent bilateral nephrostomy tube change by interventional radiology and now both tubes are draining clear urine. Review of Systems Constitutional: DENIES: Diaphoretic episodes Endocrine: DENIES: Heat/cold intolerance Eyes: DENIES: Blurred vision Ears, nose, mouth, throat: DENIES: Tinnitus Respiratory: DENIES: Apneas Cardiovascular: DENIES: Chest pain Gastrointestinal: DENIES: Abdominal pain Hematologic/lymphatic: DENIES: Bruising Immunologic/allergic: DENIES: Eczema Neurologic: DENIES: Abnormal gait Psychiatric: DENIES: Anxiety Past Family Social History Past Medical History Bladder cancer Atrial fibrillation Past Surgical History Bilateral nephrostomy tube placement Allergies: Coded Allergies: Cipro (Verified Allergy, Intermediate, 10/01/16) pt states "it doesnt agree with me" Lactose (Verified Allergy, Unknown, 10/01/16) Family History History of cancer Social History Denies smoking or drinking Physical Exam Vital Signs Date Time Temp Pulse Resp B/P Pulse Ox O2 Delivery O2 Flow Rate FiO2 10/02/16 08:30 99.3 88 18 105/63 97 10/02/16 05:02 99.6 94 20 100/59 94 10/02/16 00:53 99.3 79 20 92/58 94 10/01/16 21:20 99.4 92 22 107/57 95 10/01/16 18:40 98.9 87 20 106/73 96 10/01/16 16:04 72 18 105/55 98 10/01/16 13:30 103/59 Physical Exam GENERAL: This is a well-nourished, well-developed patient, in no apparent distress. SKIN: No rashes, ecchymoses or lesions. Cool and dry. HEAD: Atraumatic. Normocephalic. No temporal or scalp tenderness. EYES: Pupils equal round and reactive. Extraocular motions intact. No scleral icterus. No injection or drainage. ENT: Nose without bleeding, purulent drainage or septal hematoma. Throat without erythema, tonsillar hypertrophy or exudate. Uvula midline. Airway patent. NECK: Trachea midline. No JVD or lymphadenopathy. Supple, nontender, no meningeal signs. CARDIOVASCULAR: Regular rate and rhythm without murmurs, gallops, or rubs. RESPIRATORY: Clear to auscultation. Breath sounds equal bilaterally. No wheezes , rales, or rhonchi. GASTROINTESTINAL: Abdomen soft, non-tender, nondistended. No hepato-splenomegaly , or palpable masses. No guarding. GENITOURINARY: Bilateral nephrostomy tubes in place draining clear MUSCULOSKELETAL: Extremities without clubbing, cyanosis, or edema. No joint tenderness, effusion, or edema noted. No calf tenderness. Negative Homans sign bilaterally. NEUROLOGICAL: Awake and alert. Cranial nerves II through XII intact. Motor and sensory grossly within normal limits. Five out of 5 muscle strength in all muscle groups. Normal speech. Laboratory Tests Test 10/01/16 10/02/16 12:20 08:10 Urine Color YELLOW Urine Turbidity HAZY Urine pH 5.5 Urine Specific [place] 1.013 Urine Protein 100 Urine Glucose (UA) NEG Urine Ketones NEG Urine Occult Blood LARGE Urine Nitrite NEG Urine Bilirubin NEG Urine Urobilinogen LESS THAN 2.0 Urine Leukocyte Esterase LARGE Urine RBC 83 Urine WBC 66 Urine Squamous Epithelial <1 Cells Urine Amorphous Sediment RARE Urine Bacteria RARE Urine Mucus FEW Microscopic Urinalysis Comment CULTURE INDICATED Sodium Level 139 Potassium Level 3.7 Chloride Level 109 Carbon Dioxide Level 21.3 Anion Gap 9 Blood Urea Nitrogen 50 Creatinine 4.32 Estimat Glomerular Filtration 14 Rate Random Glucose 92 Calcium Level 8.4 Date/Time Procedure Status Source Growth 10/01/16 12:20 Urine Culture Received Urine Clean Catch Pending Result Diagram: 10/01/16 1200 10/02/16 0810 Imaging Last Impressions Abdomen/Pelvis CT 10/01/16 0000 Signed Impressions: Service Date/Time: Saturday, October 01, 2016 12:05 - CONCLUSION: 1. Bilateral hydronephrosis and hydroureter identified. 2. The bladder is incompletely evaluated on this study without contrast, but abnormal in appearance with surgical clips and abnormal soft tissue masslike area in the left hemipelvis. 3. Diverticulosis without diverticulitis. 4. Left para-aortic adenopathy measuring up to 1.7 cm in short axis dimension at the level of the kidney. Austen Golden MD Assessment and Plan Assessment and Plan 60-year-old male with history of bladder cancer with bilateral nephrostomy tubes in acute renal failure and nonfunctioning left nephrostomy tube. Patient underwent bilateral nephrostomy tube change by interventional radiology. Tubes now draining clear urine. Acute renal failure slowly improving his creatinine is down to 4.3 from 4.6. Patient instructed to maintain adequate by mouth hydration at home. He'll follow-up with Dr. Crooks and Dr. Cunningham as an outpatient. Isreal Bower DO October 02, 2016 12:22
--- NOTE | 2016-10-02 12:38 | RADRPT ---
EXAM DATE/TIME: 10/02/2016 11:17 [facility] COMPARISON: CHANGE OF NEPHROSTOMY CATH, LT, July 25, 2016, 8:28. INDICATIONS : Patient with history of bladder cancer in need of left nephrostomy tube exchange. MEDICAL HISTORY : Bladder cancer HTN Urinary distention Hx bladder tumor BPH Bilat renal hydronephrosis SURGICAL HISTORY : Removal of bladder tumor Hernia repair TURP Cystoscopy ENCOUNTER: Subsequent ACUITY: >1 year PAIN SCORE: 0/10 FLUORO TIME: 4.4 minutes IMAGE SERIES: 4 CONTRAST: 20 cc Omnipaque (iohexol) 350 MEDICATION(S): 1.) 200 mcg fentanyl (Sublimaze) IV DEVICE(S): 1.) 8 Chinese Locking Skater catheter PROCEDURE : 1. Antegrade pyelogram. 2. Nephrostomy tube exchange. The risks, benefits and alternatives to the procedure were explained and verbal and written consent w as obtained. The site was prepped in sterile fashion. Full sterile technique was used, including ca p, mask, sterile gloves and gown and a large sterile sheet. Hand hygiene and 2% chlorhexidine and/or betadine/alcohol prep was utilized per protocol for cutaneous antisepsis. The skin and subcutaneous tissues were infiltrated with local anesthetic solution. With fluoroscopic guidance antegrade pyelo gram was performed. Over a guidewire the prescribed nephrostomy tube was placed. Injection of positive contrast demonstra daniel good position of the catheter within the collecting system. Patient requested no conscious sedation. Procedure was done with IV analgesia only. EKG and oximetry remained stable throughout the procedure. The patient tolerated the procedure well and there were n o complications. The patient was sent to post anesthesia recovery in stable condition. CONCLUSION: Uncomplicated nephrostomy tube exchange as above. Prieto Perez MD on October 02, 2016 at 12:35 Board Certified Radiologist. This report was verified electronically.
--- NOTE | 2016-10-02 12:48 | RADRPT ---
EXAM DATE/TIME: 10/02/2016 11:17 [facility] COMPARISON: No previous studies available for comparison. INDICATIONS : Patient with history of bladder cancer in need of right nephroureteral tube exchange. MEDICAL HISTORY : Bladder cancer HTN Urinary distention Hx bladder tumor BPH Bilat renal hydronephrosis SURGICAL HISTORY : Removal of bladder tumor Hernia repair TURP Cystoscopy ENCOUNTER: Subsequent ACUITY: >1 year PAIN SCORE: 0/10 FLUORO TIME: 4.4 minutes IMAGE SERIES: 3 CONTRAST: 20 cc Omnipaque (iohexol) 350 MEDICATION(S): 1.) 200 mcg fentanyl (Sublimaze) IV DEVICE(S): 1.) 8 [place] X 24cm nephroureteral stent PROCEDURE : 1. Antegrade percutaneous pyelogram. 2. Nephroureteral catheter exchange. The risks, benefits and alternatives to the procedure were explained and verbal and written consent w as obtained. The site was prepped in sterile fashion. Full sterile technique was used, including ca p, mask, sterile gloves and gown and a large sterile sheet. Hand hygiene and 2% chlorhexidine and/or betadine/alcohol prep was utilized per protocol for cutaneous antisepsis. The skin and subcutaneous tissues were infiltrated with local anesthetic solution. With ultrasound and fluoroscopic guidance the selected kidney was punctured and a percutaneous antegr nazario pyelogram was performed demonstrating catheter position over a guidewire. The prescribed nephrour eteral catheter was placed with the proximal portion within the renal pelvis and the distal extent in the urinary bladder. Injection of positive contrast demonstrates good position of the catheter. Per patient request, procedure was performed without IV conscious sedation. EKG and oximetry remained stable throughout the procedure. The patient tolerated the procedure well and there were no complic ations. The patient was sent to post anesthesia recovery in stable condition. CONCLUSION: Uncomplicated nephroureteral catheter exchange as above. Prieto Perez MD on October 02, 2016 at 12:44 Board Certified Radiologist. This report was verified electronically.
[2016-10-02] MEDS ORDERED: cefTRIAXone INJ 1,000 MG in SODIUM CHLORIDE 0.9% INJ 100 ML IV SCH (13:00)
== END 2016-10-02 12:19 | disposition home or self-care (01) | DRG 683 ==
LOC: NEPC 10:50 → NEDA 13:38 → N05A 16:56
PROVIDERS: ADMIT Internal Medicine; ATTEND Internal Medicine
PROC: 0T25X0Z Change Drainage Device in Kidney, External Approach (ICD-10-PCS; principal; 2016-10-02)
DX: N17.9 Acute kidney failure, unspecified (principal); C79.51 Secondary malignant neoplasm of bone; C67.9 Malignant neoplasm of bladder, unspecified; I48.91 Unspecified atrial fibrillation; D63.8 Anemia in other chronic diseases classified elsewhere; I12.9 Hypertensive chronic kidney disease with stage 1 through stage 4 chronic kidney disease, or unspecified chronic kidney disease; Z93.6 Other artificial openings of urinary tract status; N13.30 Unspecified hydronephrosis; N18.9 Chronic kidney disease, unspecified
CPT/HCPCS: 50387; 50435; 74176; 80048; 81001; 85025; 87077; 87086; 87106; 87186; 96360; C1729; C1769; C1877; J0696; J2405; J3010; J7030; Q9967